=== PATIENT | female | born 1985 | race Caucasian/White ===

== ENCOUNTER 2018-11-26 06:42 | Emergency (ER) | payer BC ==
[~2018-11-26] VITALS: Ht 167.6 cm; Wt 56.2 kg
--- NOTE | 2018-11-26 06:55 | NUR ---
Patient ambulated with stable gait. Speech is clear, speaks in complete sentences. A/Ox4. No acute neuro deficits noted. Patient came for c/o sudden onset of sharp radiating pain from umbilicus to RLQ of the abdomen since 399. Patient has episodes of n/v with no diarrhea reported. Respiratory even and unlabored no sob, no s/sx of cardiovascular stress, all pulses palpable. Denies any bleeding or discomfort. Patient in bed at lowest position, sr upx2, call light within reach, fall precautions implemented per protocol. Patients friend at bedside accompanying patient.
--- NOTE | 2018-11-26 07:05 | NUR ---
Report given to JOAN Arshad.
--- NOTE | 2018-11-26 07:07 | NUR ---
report received from [facility].
--- NOTE | 2018-11-26 07:08 | NUR ---
seen by Dr. Singh.
[2018-11-26] MEDS ORDERED: ONDANSETRON 4 MG/2 ML VIAL ONE (07:11)
[2018-11-26] MEDS ORDERED: MORPHINE SULFATE 4 MG/1 ML DISP.SYRIN ONE (07:14)
[2018-11-26] MEDS ORDERED: IV NORMAL SALINE 1000 ML BAG IV ONE (07:15)
[2018-11-26] MEDS ORDERED: MORPHINE SULFATE 2 MG/1 ML DISP.SYRIN IV ONE (07:15)
[2018-11-26] MEDS ORDERED: ONDANSETRON 4 MG/2 ML VIAL IV ONE (07:15)
--- NOTE | 2018-11-26 07:15 | NUR ---
IV NS infusing via left AC #20 started by Jonatan FRANCO. medicated with Zofran IV and Morphine IV. vital signs noted. had 1 emesis prior to medication.
[2018-11-26 07:29] LABS: CREATININE 0.6 mg/dL (0.6-1.3); POTASSIUM 4.1 mmol/L (3.5-5.1)
[2018-11-26 07:31] LABS: HEMOGLOBIN 15.4 g/dL (10.9-14.3)
[2018-11-26 07:35] LABS: BILIRUBIN,DIRECT 0.2 mg/dL (0.0-0.2); BILIRUBIN,TOTAL 0.8 mg/dL (0.2-1.0); TOTAL PROTEIN, SERUM 7.7 g/dL (6.4-8.2)
[2018-11-26 07:42] LABS: BASOPHILS % (AUTO) 0.1 % (0.0-2.0); EOSINOPHILS % (AUTO) 0.3 % (0.0-7.0); HEMATOCRIT 44.8 % (31.2-41.9); LYMPHOCYTES # (AUTO) 0.9 K/uL (20.0-40.0); LYMPHOCYTES % (AUTO) 9.7 % (20.5-51.5); MEAN CORPUSCULAR HEMOGLOBIN 32.4 uug (24.7-32.8); MEAN CORPUSCULAR HGB CONC 34 g/dL (32.3-35.6); MONOCYTES # (AUTO) 0.4 K/uL (2.0-10.0); MONOCYTES % (AUTO) 4.5 % (0.0-11.0); NEUTROPHILS % (AUTO) 85.4 % (38.5-71.5); PLATELET COUNT (AUTO) 204 K/uL (179-408); RED BLOOD CELL COUNT(AUTO) 4.77 MIL/uL (3.63-4.92); WHITE BLOOD COUNT (AUTO) 9.4 K/uL (3.8-11.8)
--- NOTE | 2018-11-26 07:55 | NUR ---
voided, spec sent to lab
--- NOTE | 2018-11-26 08:08 | NUR ---
abd/pelvic ultrasound done at the bedside
[2018-11-26 08:23] LABS: *BILIRUBIN,URIN NEGATIVE (NEGATIVE); *CLARITY,URINE CLEAR (CLEAR); *COLOR,URINE YELLOW (YELLOW); *KETONES,URINE NEGATIVE (NEGATIVE); *UROBILINOGEN,URINE 0.2 E.U./dl (NORMAL); LEUKOCYTE ESTERASE ,URINE NEGATIVE (NEGATIVE); NITRITE, URINE NEGATIVE (NEGATIVE); PH,URINE 7.5 (5.0-8.0); UGLUCOSE NEGATIVE (NEGATIVE)
[2018-11-26 08:24] LABS: *BLOOD, URINE TRACE (NEGATIVE)
[2018-11-26 08:27] LABS: BACTERIA,URINE FEW /HPF (NONE SEEN); WBC,URINE 0-3 /HPF (0-3)
--- NOTE | 2018-11-26 09:07 | NUR ---
[facility] reevaluated the patient
--- NOTE | 2018-11-26 09:28 | NUR ---
to radiology dept for abd ct scan
--- NOTE | 2018-11-26 10:14 | NUR ---
exit care and homegoing instructions given to patient/ verbalized undertanding. discharged home
[2018-11-26 10:17] VITALS: BP 109/66
== END 2018-11-26 10:19 | disposition home or self-care (01) ==
LOC: ER 06:47
DX: R10.31 Right lower quadrant pain (principal); R11.10 Vomiting, unspecified
CPT/HCPCS: 36415; 74176; 76856; 80048; 80076; 81000; 81001; 83690; 84702; 85025; 96361; 96374; 96375; 99284; J2270; J2405; A4663; J7030